=== PATIENT | female | born 1995 | race African-American/Black ===

== ENCOUNTER 2023-04-27 23:58 | Emergency (ER) | payer OTHER ==
[~2023-04-27] VITALS: Ht 157.5 cm; Wt 60.8 kg
[2023-04-28] MEDS ORDERED: ACETAMINOPHEN 500 MG TAB PO ONE ×2 (00:30→00:45)
[2023-04-28 01:13] LABS: Hematocrit 34.5 % (36.0-46.0); Hemoglobin 11.8 g/dL (12.2-16.2); Mean Corpuscular Hemoglobin 28.3 pg (28.0-32.0); Mean Corpuscular Hgb Conc. 34.3 g/dL (32.0-36.0); Mean Corpuscular Volume 82.3 fL (80.0-100.0); Red Blood Cells 4.19 10^6/uL (4.0-5.20); Red Cell Distribution Width 13.8 % (11.8-14.3); White Blood Cell 3.7 10^3/uL (4.4-10.8)
[2023-04-28 01:14] LABS: Urine Bacteria FEW /hpf (None Seen); Urine Blood 1+ /uL (Negative); Urine Mucus MANY (None Seen); Urine Specific Gravity 1.028 (1.001-1.035); Urine WBC 36 /hpf (0 - 5)
[2023-04-28 01:15] LABS: Band Neutrophils % (manual) 0; Basophils % (manual) 0 (0.0-2.0); Blast Cells 0; Eosinophils % (manual) 0 (0-7); Metamyelocytes % 0; Myelocytes % 0; Promyelocytes % 0; Reactive Lymphocytes 0
[2023-04-28 01:30] LABS: Albumin 3.6 g/dL (3.4-5.0); BUN/Creatinine Ratio 10.1 (10.0-20.0); Calcium 8.7 mg/dL (8.5-10.1)
[2023-04-28 01:33] LABS: Bilirubin, Total 0.6 mg/dL (0.2-1.0); Total Protein 8.4 g/dL (6.4-8.2)
[2023-04-28 01:40] LABS: Lymphocytes % (manual) 42 (10.0-50.0); Monocytes % (manual) 17 (0-12)
[2023-04-28 01:50] LABS: Potassium 2.9 mmol/L (3.5-5.1)
[2023-04-28] MEDS ORDERED: POTASSIUM EFFERVESENT TAB 25 MEQ PO ONE (02:30)
[2023-04-28] MEDS ORDERED: ONDANSETRON ODT 4 MG TAB PO ONE (02:30)
[2023-04-28] MEDS ORDERED: POTASSIUM CHL 20 Meq TABLET PO ONE (07:15)
[2023-04-28] MEDS ORDERED: LACTATED RINGER'S 1,000 ML IV ONE (07:15)
[2023-04-28] MEDS ORDERED: CIPR750T3 PO (07:17)
[2023-04-28] MEDS ORDERED: ZOFR4T PO (07:35)
[2023-04-28 07:43] VITALS: BP 110/73
== END 2023-04-28 07:55 | disposition home or self-care (01) ==
LOC: ER 23:58
DX: K52.9 Noninfective gastroenteritis and colitis, unspecified (principal); E87.6 Hypokalemia; E86.0 Dehydration; N39.0 Urinary tract infection, site not specified; R10.2 Pelvic and perineal pain; F12.10 Cannabis abuse, uncomplicated; Z20.822 Contact with and (suspected) exposure to COVID-19
CPT/HCPCS: 36415; 74176; 80053; 81001; 83605; 83690; 84702; 85007; 85027; 87040; 87086; 87426; 87804; 99285; Q0162

== ENCOUNTER 2023-06-02 14:40 | Emergency (ER) | payer OTHER ==
[~2023-06-02] VITALS: Ht 157.5 cm; Wt 62.2 kg
[~2023-06-02 14:40] MED LIST: CIPR750T3 PO; ZOFR4T PO
[2023-06-02] MEDS ORDERED: IBUP1TAB5 PO (20:55)
[2023-06-02] MEDS ORDERED: CYCL-839 PO (20:55)
[2023-06-02] MEDS ORDERED: IBUPROFEN 600 MG TAB PO ONE (21:00)
[2023-06-02 21:25] VITALS: BP 118/84
== END 2023-06-02 21:28 | disposition home or self-care (01) ==
LOC: EDBD 14:40 → ER 14:40
DX: S13.9XXA Sprain of joints and ligaments of unspecified parts of neck, initial encounter (principal); S43.402A Unspecified sprain of left shoulder joint, initial encounter; S00.83XA Contusion of other part of head, initial encounter; S20.212A Contusion of left front wall of thorax, initial encounter; S70.02XA Contusion of left hip, initial encounter; F12.10 Cannabis abuse, uncomplicated; V43.52XA Car driver injured in collision with other type car in traffic accident, initial encounter; Y93.89 Activity, other specified; Y92.488 Other paved roadways as the place of occurrence of the external cause; Y99.8 Other external cause status
CPT/HCPCS: 70450; 71250; 72125; 73030; 74176

== ENCOUNTER 2023-12-07 08:23 | Emergency (ER) | payer OTHER ==
[~2023-12-07] VITALS: Ht 157.5 cm; Wt 65.3 kg
[~2023-12-07 08:23] MED LIST changes: +CYCL-839 PO; +IBUP1TAB5 PO
[2023-12-07 08:57] VITALS: BP 139/85; PULSE 136; RESP 16; O2SAT 97
[2023-12-07] MEDS ORDERED: IBUP-1454 PO (09:22)
[2023-12-07] MEDS ORDERED: IBUPROFEN 600 MG TAB PO ONE (09:30)
[2023-12-07 09:34] VITALS: TEMP 99.1
== END 2023-12-07 09:33 | disposition home or self-care (01) ==
LOC: ER 08:23
DX: S52.502A Unspecified fracture of the lower end of left radius, initial encounter for closed fracture (principal); S52.612A Displaced fracture of left ulna styloid process, initial encounter for closed fracture; F12.10 Cannabis abuse, uncomplicated; Y04.0XXA Assault by unarmed brawl or fight, initial encounter; Y93.89 Activity, other specified; Y92.89 Other specified places as the place of occurrence of the external cause; Y99.8 Other external cause status
CPT/HCPCS: 29125; 73110